=== PATIENT | female | born 1970 | race Caucasian/White ===

== ENCOUNTER 2017-05-22 06:22 | Emergency (ER) | payer BC ==
--- NOTE | 2017-05-22 06:41 | ERPHSYRPT ---
- History of Present Illness Time Seen by Provider: 05/22/17 06:27 Source: patient Exam Limitations: no limitations Physician History: FOR THE PAST 4 DAYS PT HAS HAD SHARP PAIN OVER THE LEFT LOWER RIBS WORSE WITH MOVEMENT, DEEP BREATHING AND POSITION CHANGE. PT DENIES ABDOMINAL PAIN, NAUSEA, VOMITING, DIARRHEA, FEVER. Allergies/Adverse Reactions: morphine Allergy (Verified 03/01/14 20:20) Tightness of Throat Hx Tetanus, Diphtheria Vaccination/Date Given: Yes (2009) Hx Influenza Vaccination/Date Given: No Hx Pneumococcal Vaccination/Date Given: No - Review of Systems Cardiac: Other (LEFT LOWER RIB PAIN) All Other Systems: Reviewed and Negative - Past Medical History Pertinent Past Medical History: Yes Neurological History: No Pertinent History Cardiac History: No Pertinent History Respiratory History: No Pertinent History Endocrine Medical History: Hypoglycemia Musculoskeletal History: Fractures Psycho-Social History: Depression - Past Surgical History Past Surgical History: Yes Gastrointestinal: Appendectomy, Other Female Surgical History: Hysterectomy, Lumpectomy, Tubal Ligation Other Surgical History: polyps removed from colon, - Social History Smoking Status: Never smoker Exposure to second hand smoke: Yes Drug Use: none Patient Lives Alone: No - Female History Hx Now: No - Nursing Vital Signs Nursing Vital Signs: Initial Vital Signs Temperature 96.8 F 05/22/17 06:22 Pulse Rate 78 05/22/17 06:22 Respiratory Rate 18 05/22/17 06:22 Blood Pressure 133/82 05/22/17 06:22 O2 Sat by Pulse Oximetry 99 05/22/17 06:22 Pain Scale Pain Intensity [Left Upper 7 Chest] Pain Intensity 6 - Physical Exam General Appearance: alert Eye Exam: PERRL/EOMI Ears, Nose, Throat Exam: pharynx normal, moist mucous membranes Neck Exam: normal inspection Respiratory Exam: chest tenderness (MILD LEFT LOWER ANTERIOLATERAL RIB PAIN WITHOUT CREPITUS.), lungs clear Cardiovascular Exam: normal heart sounds Gastrointestinal/Abdomen Exam: soft, normal bowel sounds Back Exam: normal inspection, normal range of motion, No vertebral tenderness Extremity Exam: No pedal edema Neurologic Exam: alert, cooperative Skin Exam: warm, dry - Course Nursing assessment & vital signs reviewed: Yes - Radiology Exams Chest X-ray Interpretation: Interpreted by me, No Pneumonia Left Ribs X-ray Interpretation: Interpreted by me, No Fracture Ordered Tests: Active Orders 24 hr Category Date Time Status CHEST 1 VIEW (PORTABLE) Stat Exams 05/22/17 06:45 Ordered RIBS BILATERAL INCLUDE PA CXR Stat Exams 05/22/17 Stop Req RIBS UNILATERAL Stat Exams 05/22/17 Ordered - Departure Time of Disposition: 07:18 Departure Disposition: Home Clinical Impression: LEFT RIB PAIN Condition: Stable Critical Care Time: No Instructions: Bruised Rib (DC) Additional Instructions: FOLLOW UP WITH PRIVATE DOCTOR TOMORROW. Prescriptions: Naproxen [Naprosyn] 500 mg PO Q12H PRN PRN #20 tablet PRN Reason: Pain Cyclobenzaprine HCl [Flexeril] 10 mg PO TID #20 tablet
[2017-05-22] MEDS ORDERED: TORAdol 30 mg Injection IM ONE (07:22)
[2017-05-22] MEDS ORDERED: TORAdol 30 mg Injection ONE (07:34)
[2017-05-22 07:50] VITALS: BP 126/80; PULSE 76; O2SAT 98
--- NOTE | 2017-05-22 09:21 | XRAY ---
Indication: Left lower rib pain. No known injury. Comparison: None 2 views of the left ribs demonstrates mild multilevel spinal endplate spurring. No other bony, articular, or soft tissue abnormalities.
--- NOTE | 2017-05-22 09:21 | XRAY ---
Indication: Left lower rib pain. No known injury. Comparison: None Single portable chest demonstrate normal heart and lungs with a few incidental calcified granulomas. Bony thorax intact with partially visualized old right humeral fracture and fixation hardware.
== END 2017-05-22 07:50 | disposition home or self-care (01) ==
LOC: ED 06:22
DX: R07.81 Pleurodynia (principal)
CPT/HCPCS: 71045; 71100; 96372; 99283; 99284; J1885

== ENCOUNTER 2018-10-06 12:16 | Emergency (ER) | payer BC, SELFPAY ==
[2018-10-06 12:42] VITALS: BP 136/75
--- NOTE | 2018-10-06 13:20 | ERPHSYRPT ---
- History of Present Illness Time Seen by Provider: 10/06/18 12:45 Source: patient Exam Limitations: no limitations Patient Subjective Stated Complaint: pt reports right leg pain and swelling, pt reports she noticed a knot to the right lateral upper thigh today and was concerned for a blood clot. pt reports she has a sharp shooting pain that radiates down the leg. pt states she spoke with her PCP and he advised her to present to the ED. Triage Nursing Assessment: pt is aox3, pupils perrl, afebrile, resps easy and non labored, radial pulses strong and equal, cap refill < 3 seconds, skin pink warm dry. no redness or swelling noted to the right leg, ROM and sensation is intact. small hardened area noted with palpation to the right lateral thight. skin is intact. pedal pulses strong and equal bilat. pt ambulated to t area wit no difficulties. Physician History: 48 y/o morbidly obese white female presents with 2 month h/o shooting pains like lightning down right leg. pt also complains of temperature differences in medial thigh from lateral thigh as well as a new lump lateral right thigh. no trauma. denies inactivity. no bleeding or clotting issues Method of Injury: other (no injury) Occurred: other (2 months ago) Quality: intermittent Severity of Pain-Max: none Severity of Pain-Current: none Lower Extremities Pain: thigh: right Modifying Factors: Improves With: nothing Allergies/Adverse Reactions: morphine Allergy (Verified 03/01/14 20:20) Tightness of Throat Hx Tetanus, Diphtheria Vaccination/Date Given: No Hx Influenza Vaccination/Date Given: No Hx Pneumococcal Vaccination/Date Given: No Immunizations Up to Date: Yes - Review of Systems Constitutional: No Symptoms Eyes: No Symptoms Ears, Nose, & Throat: No Symptoms Respiratory: No Symptoms Cardiac: No Symptoms Abdominal/Gastrointestinal: No Symptoms Genitourinary Symptoms: No Symptoms Musculoskeletal: Other (intermittent shooting pains down right leg), No Injury Skin: Other (lateral right thigh lump) Neurological: No Symptoms Psychological: No Symptoms Endocrine: No Symptoms Hematologic/Lymphatic: No Symptoms Immunological/Allergic: No Symptoms All Other Systems: Reviewed and Negative - Past Medical History Pertinent Past Medical History: Yes Neurological History: No Pertinent History ENT History: No Pertinent History Cardiac History: No Pertinent History Respiratory History: No Pertinent History Endocrine Medical History: Hypoglycemia Musculoskeletal History: Fractures GI Medical History: No Pertinent History History: No Pertinent History Psycho-Social History: Depression - Past Surgical History Past Surgical History: Yes Neuro Surgical History: No Pertinent History Cardiac: No Pertinent History Respiratory: No Pertinent History Gastrointestinal: Appendectomy, Other Musculoskeletal: Other Female Surgical History: Hysterectomy, Lumpectomy, Tubal Ligation Other Surgical History: polyps removed from colon, - Social History Smoking Status: Never smoker Exposure to second hand smoke: Yes Drug Use: none Patient Lives Alone: No - Female History Hx Last Menstrual Period: hyst Hx Now: No - Nursing Vital Signs Nursing Vital Signs: Initial Vital Signs Temperature 98 F 10/06/18 12:29 Blood Pressure 136/75 10/06/18 12:29 Pain Scale Pain Intensity 4 - Physical Exam General Appearance: no apparent distress, alert, anxiety Eyes, Ears, Nose, Throat Exam: normal ENT inspection, moist mucous membranes Neck Exam: normal inspection, non-tender, supple, full range of motion Cardiovascular/Respiratory Exam: chest non-tender Gastrointestinal/Abdominal Exam: non-tender Back Exam: normal inspection, normal range of motion, No CVA tenderness, No vertebral tenderness Hips Exam: bilateral: non-tender, normal inspection, normal range of motion, no evidence of injury Legs Exam: right leg: nodules (right lateral subq mass), bilateral leg: non- tender, normal inspection, normal range of motion, no evidence of injury Knees Exam: bilateral knee: non-tender, normal inspection, normal range of motion, no evidence of injury Ankle Exam: bilateral ankle: non-tender, normal inspection, normal range of motion, no evidence of injury Foot Exam: bilateral foot: non-tender, normal inspection, normal range of motion , no evidence of injury Neuro/Tendon Exam: normal sensation, normal motor functions, normal tendon functions Mental Status Exam: alert, oriented x 3, cooperative Skin Exam: normal color, warm, dry SpO2 Interpretation: normal O2 Delivery: Room Air - Course Nursing assessment & vital signs reviewed: Yes Ordered Tests: Active Orders 24 hr Category Date Time Status D-DIMER QUANTITATION Stat Lab 10/06/18 13:09 Completed Lab/Rad Data: Laboratory Results 10/06/18 Range/Units 13:09 D-Dimer 347 (215-500) ng/mL - Progress Progress: unchanged Counseled pt/family regarding: lab results, diagnosis, need for follow-up - Departure Departure Disposition: Home Clinical Impression: Leg pain Condition: Stable Critical Care Time: No Referrals: ANA GONZALEZ MD [Primary Care Provider] - Additional Instructions: follow up with primary doctor for further management
== END 2018-10-06 14:23 | disposition home or self-care (01) ==
LOC: ED 12:16
DX: M79.604 Pain in right leg (principal); E66.01 Morbid (severe) obesity due to excess calories
CPT/HCPCS: 36415; 85379; 99283

== ENCOUNTER 2019-05-14 07:22 | Day surgery (SDC) | payer BC ==
[2019-05-14] MEDS ORDERED: Lactated Ringers 1,000 ML IV SCH (07:30)
[2019-05-14] MEDS ORDERED: DIPRIVAN 200 MG/20 ML IV ONE ×3 (09:35→10:05)
[2019-05-14] MEDS ORDERED: Versed 2 MG/2 ML Injection ONE (09:35)
[2019-05-14 11:57] VITALS: BP 143/79; PULSE 86; O2SAT 98
--- NOTE | 2019-05-18 10:24 | OP ---
PROCEDURE DATE/TIME: 05/14/2019 0945 PREOPERATIVE DIAGNOSIS: Epigastric pain, bloating, reflux, nausea, lower abdominal pain and change in bowel function. POSTOPERATIVE DIAGNOSES: 1) A 1 to 2 cm small hiatal hernia. 2) Reflux esophagitis. 3) Small lower gastric body mobile submucosal mass. 4) Diverticulosis. PROCEDURES: 1) EGD with cold biopsies. 2) Colonoscopy to cecum. PROCEDURE PERFORMED BY: Bekah Fonseca M.D. ANESTHESIA: MAC. ESTIMATED BLOOD LOSS: Minimal. COMPLICATIONS: None. SPECIMENS: 1) Biopsy lower gastric body mass. 2) Antral biopsy. 3) Distal esophagus biopsies; rule out Vizcarra's disease. HISTORY: This is a 48 year-old female who presents for EGD and colonoscopy. Risks, benefits, alternatives to the procedure were discussed with the patient preoperatively. H&P and consent reviewed with her and confirmed. DESCRIPTION OF PROCEDURE: She was then placed in lateral decubitus position. A complete time out performed. The scope gently introduced into the mouth, oropharynx down into the esophagus, stomach and duodenum. The duodenum is normal. In the stomach she has a small lower gastric body lesion this is submucosal about 1 cm. It is mobile most consistent with a lipoma. I did attempt to biopsy this and this was sent to pathology. We also sent antral biopsy to rule out Helicobacter pylori due to her symptoms. She does have a small hiatal hernia on retroflex view, this is about 1 to 2 cm. No other significant findings in the stomach, very minimal gastritis. All sites of biopsy were hemostatic. We then withdrew the scope into the distal esophagus. The distal esophagus again there was a 1 to 2 cm small hiatal hernia. She did have some mild reflux esophagitis right at her gastroesophageal junction. I did a couple of biopsies here to rule out any underlying Vizcarra's disease. She had two columns that were less than 1 cm of mucosal change and these were both biopsied. All sites hemostatic. The scope is then further withdrawn. The remainder of the esophagus was normal. The patient tolerated the procedure well. She was then repositioned for colonoscopy. First, a rectal exam was done. The patient does have some hemorrhoidal disease. No bleeding or acute issues here. The scope was then inserted and gently advanced to the level of the cecum. Prep was satisfactory for review for polyps. There was liquid stool that had to be irrigated and suctioned free. A very small or very flat lesion could be missed because of a not perfect prep. We identified the ileocecal valve and appendiceal orifice and these are normal. The scope was then carefully withdrawn taking a circumferential view. The patient does have diverticulosis in her descending and sigmoid colon. Other than that there were no lesions or concerns. The patient tolerated the procedure very well. No immediate complications. She is going to follow up with me as an outpatient for final review of pathology. At this time our plan will be for EGD in one year due to the finding of a submucosal mass and reflux disease and a colonoscopy in approximately five years.
== END 2019-05-14 11:35 | disposition home or self-care (01) ==
LOC: SDC 07:22
PROVIDERS: ATTEND Surgery
DX: K44.9 Diaphragmatic hernia without obstruction or gangrene (principal); K21.0 Gastro-esophageal reflux disease with esophagitis; K57.30 Diverticulosis of large intestine without perforation or abscess without bleeding; K31.9 Disease of stomach and duodenum, unspecified; R14.0 Abdominal distension (gaseous); R19.4 Change in bowel habit; R10.30 Lower abdominal pain, unspecified
CPT/HCPCS: 88305; J2250; J2704

== ENCOUNTER 2019-05-20 22:35 | Emergency (ER) | payer BC ==
[2019-05-20 22:54] VITALS: O2SAT 99
[2019-05-20] MEDS ORDERED: Sodium Chloride 0.9% 1000 ML 1,000 ML IV STA (23:16)
[2019-05-20 23:58] LABS: Absolute Neutrophil Ct (ANC) 8.75 (1.4-6.9); BASOPHIL % 0.6 % (0.0-0.4); Basophil (Absolute #) 0.08 (0-0.4); Eosinophil % 1.3 % (0.00-5.0); Eosinophil (Absolute #) 0.18 (0-0.5); Hematocrit 39.6 % (35-47); Hemoglobin 12.3 gm/dl (12.0-16.0); Lymphocyte (Absolute #) 3.53 (1.0-4.6); Lymphocytes % 26.1 % (24.0-44.0); Mean Cell Volume 79.4 fl (78-100); Mean Corpuscular Hemoglobin 24.6 pg (26-32); Mean Corpuscular Hgb Concent. 31.1 g/dl (32-36); Mean Platelet Volume 10.1 fl (7.5-11.0); Monocyte (Absolute #) 0.99 (0.0-1.3); Monocytes % 7.3 % (0.0-12.0); Neutrophil % 64.7 % (36.0-66.0); Platelet Count 351 K/mm3 (150-450); Red Blood Count 4.99 M/mm3 (4.1-5.4); Red Cell Distribution Width 17.2 % (11.5-14.0); White Blood Count 13.5 K/mm3 (4.0-10.5)
--- NOTE | 2019-05-21 00:02 | ERPHSYRPT ---
- History of Present Illness Time Seen by Provider: 05/20/19 23:00 Historian: patient Exam Limitations: no limitations Patient Subjective Stated Complaint: pt c/o abd pain, nausea, vomiting, and pain radiates to back. Triage Nursing Assessment: pt c/o abd pain to right side which radiates to middle of abd and also radiates to back. Pt nauseated, vomited x2 at work, denies any diarrhea. Abd lg, obese with active bs x4 quad, tender on palpation. Pt c/o being diaphoretic with the pain. Pt c/o lower leg edema. Physician History: Patient is a 48-year-old female with a history of biliary colic presents to our ED with complaints of right upper quadrant pain. Pain started today while at work. Pain described as an ache that tends to radiate to her back from her right upper quadrant. Pain is associated with nausea. Patient vomited twice. No diarrhea. No trauma. No fever. Patient states that her body feels bloated. She advises staff that she is currently scheduled to have a cholecystectomy. No associated chest pain. No shortness of breath. Patient voices no other complaints at this time. Patient declined pain medication. Timing/Duration: today Activities at Onset: none Quality: aching Abdominal Pain Onset Location: RUQ Pain Radiation: back Severity of Pain-Max: moderate Severity of Pain-Current: moderate Modifying Factors: Improves With: nothing Associated Symptoms: No chest pain, No shortness of breath, No weakness Previous symptoms: same symptoms as today Allergies/Adverse Reactions: morphine Allergy (Severe, Verified 05/20/19 23:01) Tightness of Throat Home Medications: Acetaminophen 325 mg [Tylenol 325 mg] 3 tab PO UD PRN 05/14/19 [History] Hx Tetanus, Diphtheria Vaccination/Date Given: Yes Hx Influenza Vaccination/Date Given: No Hx Pneumococcal Vaccination/Date Given: No Immunizations Up to Date: Yes - Review of Systems Constitutional: No Fever, No Chills Eyes: No Symptoms Ears, Nose, & Throat: No Symptoms Respiratory: No Symptoms, No Cough, No Dyspnea Cardiac: No Symptoms, No Chest Pain, No Edema, No Syncope Abdominal/Gastrointestinal: No Symptoms, No Abdominal Pain, No Nausea, No Vomiting, No Diarrhea Genitourinary Symptoms: No Symptoms, No Dysuria Musculoskeletal: No Symptoms, No Back Pain, No Neck Pain Skin: No Symptoms, No Rash Neurological: No Symptoms, No Dizziness, No Focal Weakness, No Sensory Changes Psychological: No Symptoms Endocrine: No Symptoms Hematologic/Lymphatic: No Symptoms Immunological/Allergic: No Symptoms All Other Systems: Reviewed and Negative - Past Medical History Pertinent Past Medical History: Yes Neurological History: No Pertinent History ENT History: No Pertinent History Cardiac History: No Pertinent History Respiratory History: No Pertinent History Endocrine Medical History: Hypoglycemia Musculoskeletal History: Fractures GI Medical History: No Pertinent History History: No Pertinent History Psycho-Social History: No Pertinent History Female Reproductive Disorders: Ovarian Cancer, Uterine Cancer Other Medical History: patient states she had uterine and ovarian cancer but they got it all with complete hysterectomy, right shoulder fx and back problems - Past Surgical History Past Surgical History: Yes Neuro Surgical History: No Pertinent History Cardiac: No Pertinent History Respiratory: No Pertinent History Gastrointestinal: Appendectomy, Other Genitourinary: No Pertinent History Musculoskeletal: Orthopedic Surgery Female Surgical History: Hysterectomy, Section, Tubal Ligation, Lumpectomy Other Surgical History: polyps removed from colon, r shoulder surgeries - Social History Smoking Status: Never smoker Exposure to second hand smoke: No Drug Use: none Patient Lives Alone: No - Female History Hx Now: No - Nursing Vital Signs Nursing Vital Signs: Initial Vital Signs Temperature 97.7 F 05/20/19 22:42 Pulse Rate 93 H 05/20/19 22:42 Respiratory Rate 20 05/20/19 22:42 Blood Pressure 137/77 05/20/19 22:42 O2 Sat by Pulse Oximetry 99 05/20/19 22:42 Pain Scale Pain Intensity 10 - Physical Exam General Appearance: no apparent distress, alert Eye Exam: PERRL/EOMI, eyes nml inspection Ears, Nose, Throat Exam: normal ENT inspection, pharynx normal, moist mucous membranes Neck Exam: normal inspection, non-tender, supple, full range of motion Respiratory Exam: normal breath sounds, lungs clear, No respiratory distress Cardiovascular Exam: regular rate/rhythm, normal heart sounds Gastrointestinal/Abdomen Exam: soft, tenderness, No mass, No guarding, No pulsatile mass (Positive Wilkerson sign right upper quadrant.) Back Exam: normal inspection, normal range of motion, No CVA tenderness, No vertebral tenderness Extremity Exam: normal inspection, normal range of motion, pelvis stable Neurologic Exam: alert, oriented x 3, cooperative, normal mood/affect, nml cerebellar function, sensation nml, No motor deficits Skin Exam: normal color, warm, dry SpO2 Interpretation: normal SpO2: 99 O2 Delivery: Room Air - Course Nursing assessment & vital signs reviewed: Yes EKG Interpreted by Me: RATE, NORMAL AXIS, NORMAL INTERVALS - CT Exams Abdomen/Pelvis CT Interpretation: Tele-radiologist Report (CT abdomen pelvis negative for acute pathology. Hiatal hernia, hepatic steatosis, kidney lesion diverticulosis and spine arthritis observed. The gallbladder appears normal within the limitations of CAT scan.) Ordered Tests: Active Orders 24 hr Category Date Time Status EKG-ER Only STAT Care 05/20/19 23:16 Active IV Insertion STAT Care 05/20/19 23:16 Active ABDOMEN AND PELVIS W CONTRAST [CT] Stat Exams 05/21/19 00:12 Taken GALLBLADDER [US] Stat Exams 05/20/19 23:16 Ordered CBC W DIFF Stat Lab 05/20/19 23:55 Completed CMP Stat Lab 05/20/19 23:55 Completed LIPASE Stat Lab 05/20/19 23:55 Completed TROPONIN Q3H Lab 05/20/19 23:55 Completed TROPONIN Q3H Lab 05/21/19 02:30 Ordered TROPONIN Q3H Lab 05/21/19 05:30 Ordered TROPONIN Q3H Lab 05/21/19 08:30 Ordered TROPONIN Q3H Lab 05/21/19 11:30 Ordered UA W/RFX UR CULTURE Stat Lab 05/20/19 23:57 Completed Medication Summary Discontinued Medications Generic Name Dose Route Start Last Admin Trade Name Freq PRN Reason Stop Dose Admin Sodium Chloride 1,000 mls @ 999 mls/hr 05/20/19 23:16 05/21/19 01:41 Sodium Chloride 0.9% 1000 Ml IV 05/21/19 00:16 Infused .Q1H1M STA Infusion Sodium Chloride Confirm 05/21/19 00:12 Sodium Chloride 0.9% 1000 Ml Administered 05/21/19 00:13 Dose 1,000 mls @ ud .ROUTE .K-MED ONE Lab/Rad Data: Laboratory Result Diagrams 05/20/19 23:55 05/20/19 23:55 Laboratory Results 05/20/19 05/20/19 05/20/19 Range/Units 23:57 23:55 23:55 WBC (4.0-10.5) K/mm3 RBC (4.1-5.4) M/mm3 Hgb (12.0-16.0) gm/dl Hct (35-47) % MCV (78-100) fl MCH (26-32) pg MCHC (32-36) g/dl RDW (11.5-14.0) % Plt Count (150-450) K/mm3 MPV (7.5-11.0) fl Gran % (36.0-66.0) % Eos # (Auto) (0-0.5) Absolute Lymphs (auto) (1.0-4.6) Absolute Monos (auto) (0.0-1.3) Lymphocytes % (24.0-44.0) % Monocytes % (0.0-12.0) % Eosinophils % (0.00-5.0) % Basophils % (0.0-0.4) % Absolute Granulocytes (1.4-6.9) Basophils # (0-0.4) Sodium 140 (137-145) mmol/L Potassium 3.6 (3.5-5.1) mmol/L Chloride 104 (98-107) mmol/L Carbon Dioxide 29 (22-30) mmol/L Anion Gap 10.9 (5-15) MEQ/L BUN 15 (7-17) mg/dL Creatinine 0.58 (0.52-1.04) mg/dL Estimated GFR > 60.0 ML/MIN Glucose 98 (74-106) mg/dL Calcium 8.8 (8.4-10.2) mg/dL Total Bilirubin 0.60 (0.2-1.3) mg/dL AST 19 (14-36) U/L ALT 17 (0-35) U/L Alkaline Phosphatase 72 (38-126) U/L Troponin I < 0.012 (0.000-0.034) ng/mL Serum Total Protein 8.0 (6.3-8.2) g/dL Albumin 4.2 (3.5-5.0) g/dL Lipase 52 (23-300) U/L Urine Color YELLOW (YELLOW) Urine Appearance SLIGHTLY CLOUDY (CLEAR) Urine pH 6.0 (5-6) Ur Specific [place] 1.013 (1.005-1.025) Urine Protein NEGATIVE (Negative) Urine Ketones NEGATIVE (NEGATIVE) Urine Blood NEGATIVE (0-5) Sam/ul Urine Nitrite NEGATIVE (NEGATIVE) Urine Bilirubin NEGATIVE (NEGATIVE) Urine Urobilinogen NEGATIVE (0-1) mg/dL Ur Leukocyte Esterase NEGATIVE (NEGATIVE) Urine WBC (Auto) 3-5 (0-5) /HPF Urine RBC (Auto) 0-2 (0-2) /HPF U Epithel Cells (Auto) NONE (FEW) /HPF Urine Bacteria (Auto) NONE (NEGATIVE) /HPF Calcium Oxalate Crystal 6-10 (NEGATIVE) /HPF Unidentified Crystals 2-5 (NEGATIVE) /HPF Other Casts (Auto) NEGATIVE (NEGATIVE) /LPF Urine Mucus (Auto) SLIGHT (NEGATIVE) /HPF Urine Culture Reflexed NO (NO) Urine Glucose NEGATIVE (NEGATIVE) mg/dL 05/20/19 Range/Units 23:55 WBC 13.5 H (4.0-10.5) K/mm3 RBC 4.99 (4.1-5.4) M/mm3 Hgb 12.3 (12.0-16.0) gm/dl Hct 39.6 (35-47) % MCV 79.4 (78-100) fl MCH 24.6 L (26-32) pg MCHC 31.1 L (32-36) g/dl RDW 17.2 H (11.5-14.0) % Plt Count 351 (150-450) K/mm3 MPV 10.1 (7.5-11.0) fl Gran % 64.7 (36.0-66.0) % Eos # (Auto) 0.18 (0-0.5) Absolute Lymphs (auto) 3.53 (1.0-4.6) Absolute Monos (auto) 0.99 (0.0-1.3) Lymphocytes % 26.1 (24.0-44.0) % Monocytes % 7.3 (0.0-12.0) % Eosinophils % 1.3 (0.00-5.0) % Basophils % 0.6 (0.0-0.4) % Absolute Granulocytes 8.75 H (1.4-6.9) Basophils # 0.08 (0-0.4) Sodium (137-145) mmol/L Potassium (3.5-5.1) mmol/L Chloride (98-107) mmol/L Carbon Dioxide (22-30) mmol/L Anion Gap (5-15) MEQ/L BUN (7-17) mg/dL Creatinine (0.52-1.04) mg/dL Estimated GFR ML/MIN Glucose (74-106) mg/dL Calcium (8.4-10.2) mg/dL Total Bilirubin (0.2-1.3) mg/dL AST (14-36) U/L ALT (0-35) U/L Alkaline Phosphatase (38-126) U/L Troponin I (0.000-0.034) ng/mL Serum Total Protein (6.3-8.2) g/dL Albumin (3.5-5.0) g/dL Lipase (23-300) U/L Urine Color (YELLOW) Urine Appearance (CLEAR) Urine pH (5-6) Ur Specific [place] (1.005-1.025) Urine Protein (Negative) Urine Ketones (NEGATIVE) Urine Blood (0-5) Sam/ul Urine Nitrite (NEGATIVE) Urine Bilirubin (NEGATIVE) Urine Urobilinogen (0-1) mg/dL Ur Leukocyte Esterase (NEGATIVE) Urine WBC (Auto) (0-5) /HPF Urine RBC (Auto) (0-2) /HPF U Epithel Cells (Auto) (FEW) /HPF Urine Bacteria (Auto) (NEGATIVE) /HPF Calcium Oxalate Crystal (NEGATIVE) /HPF Unidentified Crystals (NEGATIVE) /HPF Other Casts (Auto) (NEGATIVE) /LPF Urine Mucus (Auto) (NEGATIVE) /HPF Urine Culture Reflexed (NO) Urine Glucose (NEGATIVE) mg/dL - Progress Progress: improved Progress Note: 05/21/19 02:11 We will arrange for patient to have an outpatient ultrasound of the gallbladder to be performed at this morning. Results will be sent to Dr. Mancia patient' s family physician. Plan of care discussed with patient. She agrees and understands plan of care. We have arranged to have patient obtain a right upper quadrant ultrasound to be performed Saturday morning. Results to be sent to Dr. Mancia. 05/21/19 02:20 Counseled pt/family regarding: lab results, diagnosis, need for follow-up, rad results - Departure Departure Disposition: Home Clinical Impression: Biliary colic, Hepatic steatosis, Kidney lesion, Diverticulosis, Arthritis of spine Condition: Stable Critical Care Time: No Referrals: SHIVAM MANCIA MD [Primary Care Provider] - Additional Instructions: Discharge/Care Plan JULIEN MADERA was seen on 05/21/19 in the Emergency Room. The patient was counseled regarding Diagnosis,Lab results, Imaging studies, need for follow up and when to return to the Emergency Room. Prescriptions given: Discharge Note I have spoken with the patient and/or caregivers. I have explained the patient' s condition, diagnosis and treatment plan based on the information available to me at this time. I have answered the patient's and/or caregiver's questions and addressed any concerns. The patient and/or caregivers have as good understanding of the patient's diagnosis, condition and treatment plan as can be expected at this point. The vital signs have been stable. The patient's condition is stable and appropriate for discharge from the emergency department. The patient will pursue further outpatient evaluation with the primary care physician or other designated or consulting physician as outlined in the discharge instructions. The patient and/or caregivers are agreeable to this plan of care and follow-up instructions have been explained in detail. The patient and/or caregivers have received these instruction. The patient/and or caregivers are aware that any significant change in condition or worsening of symptoms should prompt an immediate return to this or the closest emergency department or call 911.
[2019-05-21 00:07] LABS: Appearance SLIGHTLY CLOUDY (CLEAR); Bilirubin NEGATIVE (NEGATIVE); Blood NEGATIVE Ery/ul (0-5); Glucose NEGATIVE (NEGATIVE); Ketones NEGATIVE (NEGATIVE); Leukocyte Esterase NEGATIVE (NEGATIVE); Mucus SLIGHT /HPF (NEGATIVE); Nitrite NEGATIVE (NEGATIVE); Protein,Urine Dip NEGATIVE (Negative); RBC 0-2 /HPF (0-2); Specific Gravity 1.013 (1.005-1.025); Urobilinogen NEGATIVE mg/dL (0-1)
[2019-05-21 00:12] LABS: ALBUMIN 4.2 g/dL (3.5-5.0); ALKALINE PHOSPHATASE 72 U/L (38-126); ANION GAP 10.9 MEQ/L (5-15); BLOOD UREA NITROGEN 15 mg/dL (7-17); CHLORIDE 104 mmol/L (98-107); Calcium 8.8 mg/dL (8.4-10.2); Carbon Dioxide 29 mmol/L (22-30); Creatinine 1 0.58 mg/dL (0.52-1.04); Glucose 98 mg/dL (74-106); LIPASE 52 U/L (23-300); Potassium 3.6 mmol/L (3.5-5.1); SGOT/AST 19 U/L (14-36); SGPT/ALT 17 U/L (0-35); SODIUM 140 mmol/L (137-145)
[2019-05-21] MEDS ORDERED: Sodium Chloride 0.9% 1000 ML 1,000 ML ONE (00:12)
[2019-05-21 02:02] VITALS: BP 99/56; PULSE 90
--- NOTE | 2019-05-21 09:18 | XRAY ---
Indication: Right upper quadrant pain and nausea. Elevated WBC. Multiple contiguous axial images obtained through the abdomen and pelvis using 80 cc Isovue 370 contrast. Comparison: April 29, 2019. Lung bases demonstrate minimal bilateral dependent atelectasis. No infiltrate or effusion. Heart is not enlarged. Stable small hiatal hernia. Noncontrasted stomach and bowel loops remain nonobstructed. Again scattered descending and sigmoid diverticulosis without diverticulitis. Previous reported appendectomy and hysterectomy. Continued 20 cm hepatomegaly and 12.3 cm borderline splenomegaly. No free fluid/air. Stable tiny bilateral renal cysts. Remaining liver, gallbladder, pancreas, spleen, adrenal glands, kidneys, ureters, and bladder appear unremarkable. Stable minimal aortic calcifications without AAA or pathologic retroperitoneal lymphadenopathy. Osseous structures remain intact again with L4-S1 degenerative changes. Impression: 1. Stable small hiatal hernia, colonic diverticulosis, hepatosplenomegaly, and bilateral renal cysts. 2. Remaining CT abdomen/pelvis with contrast exam is negative. Comment: Preliminary interpretation was made by [facility]. No critical discrepancy.
== END 2019-05-21 02:35 | disposition home or self-care (01) ==
LOC: ED 22:35
DX: K80.50 Calculus of bile duct without cholangitis or cholecystitis without obstruction (principal); K76.0 Fatty (change of) liver, not elsewhere classified; K57.90 Diverticulosis of intestine, part unspecified, without perforation or abscess without bleeding; M46.90 Unspecified inflammatory spondylopathy, site unspecified; R10.11 Right upper quadrant pain; Z85.43 Personal history of malignant neoplasm of ovary; Z85.42 Personal history of malignant neoplasm of other parts of uterus
CPT/HCPCS: 36000; 36415; 74177; 80053; 81001; 83690; 84484; 85025; 93005; 96360; 99284

== ENCOUNTER 2019-07-15 15:06 | Emergency (ER) | payer BC ==
[2019-07-15 15:26] VITALS: O2SAT 97
--- NOTE | 2019-07-15 15:34 | ERPHSYRPT ---
- History of Present Illness Source: patient Physician History: Patient is a 48-year-old female with a history of shoulder dislocation and surgery who presents to our ED with complaints of concerns for shoulder dislocation. Patient awoke this morning with pain to her right shoulder. Patient states that she feels her shoulder is unstable and can hear a popping sensation that is similar to her previous dislocations. Pain is well localized. Pain reproduced with movement of her right shoulder. Pain essentially resolved with rest. No associated trauma that she recalls. No chest pain or shortness of breath. No nausea or vomiting. No diaphoresis. Symptoms are mild to moderate in intensity. Patient voices no other complaints at this time. Occurred: this morning Method of Injury: unknown Quality: aching Severity of Pain-Max: moderate Severity of Pain-Current: mild Extremities Pain Location: shoulder: right (Patient feels her right shoulder is unstable painful to movement.) Modifying Factors: Improves With: movement, rest Associated Symptoms: none Allergies/Adverse Reactions: morphine Allergy (Severe, Verified 07/15/19 15:38) Tightness of Throat Home Medications: No Reportable Medications [No Reported Medications] 07/15/19 [History] Hx Tetanus, Diphtheria Vaccination/Date Given: Yes Hx Influenza Vaccination/Date Given: No Hx Pneumococcal Vaccination/Date Given: No Travel Risk - International Travel Have you traveled outside of the country in past 3 weeks: No Have you or anyone close to you been diagnosed with or: No Do your reside in a community with a known COVID-19 case?: Yes If Yes where:: [facility] - Review of Systems Constitutional: No Symptoms, No Fever, No Chills Eyes: No Symptoms Ears, Nose, & Throat: No Symptoms Respiratory: No Symptoms, No Cough, No Dyspnea Cardiac: No Symptoms, No Chest Pain, No Edema, No Syncope Abdominal/Gastrointestinal: No Symptoms, No Abdominal Pain, No Nausea, No Vomiting, No Diarrhea Genitourinary Symptoms: No Symptoms, No Dysuria Musculoskeletal: Joint Pain, No Back Pain, No Neck Pain, No Deformity Skin: No Symptoms, No Rash Neurological: No Symptoms, No Dizziness, No Focal Weakness, No Sensory Changes Psychological: No Symptoms Endocrine: No Symptoms Hematologic/Lymphatic: No Symptoms Immunological/Allergic: No Symptoms All Other Systems: Reviewed and Negative - Past Medical History Pertinent Past Medical History: Yes Neurological History: No Pertinent History ENT History: No Pertinent History Cardiac History: No Pertinent History Respiratory History: No Pertinent History Endocrine Medical History: Hypoglycemia Musculoskeletal History: Fractures GI Medical History: No Pertinent History History: No Pertinent History Psycho-Social History: No Pertinent History Female Reproductive Disorders: Ovarian Cancer, Uterine Cancer Other Medical History: patient states she had uterine and ovarian cancer but they got it all with complete hysterectomy, right shoulder fx and back problems - Past Surgical History Past Surgical History: Yes Neuro Surgical History: No Pertinent History Cardiac: No Pertinent History Respiratory: No Pertinent History Gastrointestinal: Appendectomy, Other Genitourinary: No Pertinent History Musculoskeletal: Orthopedic Surgery Female Surgical History: Hysterectomy, Section, Tubal Ligation, Lumpectomy Other Surgical History: polyps removed from colon, r shoulder surgeries - Social History Smoking Status: Never smoker Exposure to second hand smoke: No Drug Use: none Patient Lives Alone: No - Female History Hx Now: No - Nursing Vital Signs Nursing Vital Signs: Initial Vital Signs Temperature 98.3 F 07/15/19 15:25 Pulse Rate 96 H 07/15/19 15:25 Respiratory Rate 20 07/15/19 15:25 Blood Pressure 109/72 07/15/19 15:25 O2 Sat by Pulse Oximetry 97 07/15/19 15:25 Pain Scale Pain Intensity 2 - Physical Exam General Appearance: no apparent distress, alert Eyes, Ears, Nose, Throat Exam: moist mucous membranes Neck Exam: non-tender, supple Cardiovascular/Respiratory Exam: chest non-tender, normal breath sounds, regular rate/rhythm, no respiratory distress Abdominal Exam: non-tender, No guarding Back Exam: normal inspection, No vertebral tenderness Shoulder Exam: limited ROM (Tenderness at the right GH joint area. A well- healed scar is observed from previous area. Extremities neurovascular intact distally. Radial pulses palpable. Compartments are soft. Cap refill less than 2 seconds. No ecchymosis or swelling.), pain Wrist Exam: non-tender Hand Exam: normal inspection Neuro/Tendon Exam: normal sensation, normal motor functions Mental Status Exam: alert, oriented x 3, cooperative Skin Exam: normal color, warm, dry SpO2 Interpretation: normal SpO2: 97 O2 Delivery: Room Air - Course Nursing assessment & vital signs reviewed: Yes - Radiology Exams Shoulder X-ray Interpretation: Interpreted by me (No fracture or dislocation. The GH joint appears to be in good alignment.) Ordered Tests: Active Orders 24 hr Category Date Time Status SHOULDER Stat Exams 07/15/19 15:24 Taken Medication Summary Generic Name Dose Route Start Last Admin Trade Name Irma PRN Reason Stop Dose Admin Acetaminophen 975 mg 07/15/19 16:05 Tylenol 325 Mg PO 07/15/19 16:06 STAT ONE - Progress Progress: improved Progress Note: 07/15/19 16:09 Patient reassessed. Pain improved. Patient given 1 g of Tylenol for pain control. Patient also placed in right upper extremity sling for comfort and stability of her right shoulder. Patient has a history of recurrent shoulder dislocation and surgery. It is possible that she may have dislocated and auto reduced. No obvious fracture dislocation on the x-ray performed today. Patient will be sent back to her orthopedic doctor Dr. Dunbar. Plan of care discussed with patient. She agrees to follow-up with her orthopedic doctor within 48 hours for reevaluation. Work note provided. - Departure Departure Disposition: Home Clinical Impression: Shoulder pain Condition: Stable Critical Care Time: No Referrals: SHIVAM FIELD MD [Primary Care Provider] - REINALDO DUNBAR [ACTIVE STAFF] - Instructions: Shoulder Sprain (DC) Additional Instructions: Please follow up with Dr. Dunbar within 48 hours for reevaluation of your right shoulder. Discharge/Care Plan JULIEN MADERA was seen on 07/15/19 in the Emergency Room. The patient was counseled regarding Diagnosis,Lab results, Imaging studies, need for follow up and when to return to the Emergency Room. Prescriptions given: Discharge Note I have spoken with the patient and/or caregivers. I have explained the patient' s condition, diagnosis and treatment plan based on the information available to me at this time. I have answered the patient's and/or caregiver's questions and addressed any concerns. The patient and/or caregivers have as good understanding of the patient's diagnosis, condition and treatment plan as can be expected at this point. The vital signs have been stable. The patient's condition is stable and appropriate for discharge from the emergency department. The patient will pursue further outpatient evaluation with the primary care physician or other designated or consulting physician as outlined in the discharge instructions. The patient and/or caregivers are agreeable to this plan of care and follow-up instructions have been explained in detail. The patient and/or caregivers have received these instruction. The patient/and or caregivers are aware that any significant change in condition or worsening of symptoms should prompt an immediate return to this or the closest emergency department or call 911.
[2019-07-15] MEDS ORDERED: TYLENOL 325 MG PO ONE (16:05)
[2019-07-15] MEDS ORDERED: TYLENOL EXTRA STRENGTH 500 MG ONE (16:06)
[2019-07-15] MEDS ORDERED: TYLENOL 325 MG ONE (16:08)
[2019-07-15 16:12] VITALS: BP 104/69; PULSE 84
--- NOTE | 2019-07-15 16:19 | XRAY ---
Indication: Dislocation. Comparison: April 02, 2017. 3 view right shoulder demonstrates healed humeral head/neck fracture. No other bony, articular, or soft tissue abnormalities.
== END 2019-07-15 16:20 | disposition home or self-care (01) ==
LOC: ED 15:06
DX: M25.511 Pain in right shoulder (principal); Z85.43 Personal history of malignant neoplasm of ovary; Z85.42 Personal history of malignant neoplasm of other parts of uterus
CPT/HCPCS: 73030; 99283; A9270-GY

== ENCOUNTER 2019-08-06 15:27 | Observation (INO) | payer BC ==
[2019-08-06] MEDS ORDERED: Ecotrin 325 MG PO PRN (16:33)
[2019-08-06 16:57] LABS: Absolute Neutrophil Ct (ANC) 7.31 (1.4-6.9); BASOPHIL % 0.6 % (0.0-0.4); Basophil (Absolute #) 0.06 (0-0.4); Eosinophil % 1.4 % (0.00-5.0); Eosinophil (Absolute #) 0.15 (0-0.5); Hematocrit 38.8 % (35-47); Hemoglobin 12.3 gm/dl (12.0-16.0); Lymphocyte (Absolute #) 2.37 (1.0-4.6); Mean Corpuscular Hemoglobin 25.4 pg (26-32); Mean Corpuscular Hgb Concent. 31.7 g/dl (32-36); Mean Platelet Volume 11.1 fl (7.5-11.0); Monocyte (Absolute #) 0.88 (0.0-1.3); Monocytes % 8.2 % (0.0-12.0); Neutrophil % 67.8 % (36.0-66.0); Platelet Count 322 K/mm3 (150-450); Red Blood Count 4.85 M/mm3 (4.1-5.4); Red Cell Distribution Width 16.9 % (11.5-14.0); White Blood Count 10.8 K/mm3 (4.0-10.5)
--- NOTE | 2019-08-06 17:31 | XRAY ---
Indication: Confusion. Visual disturbances. Possible TIA. Sagittal, coronal, and axial MRI brain was performed without contrast using T1, T2, FLAIR, diffusion, and ADC sequences. Comparison: None Ventriculosulcal pattern appears symmetric. Minimal periventricular degenerative micro-ischemia signal bilaterally. No acute intracranial hemorrhage, abnormal extra-axial fluid question, or mass effect. Diffusion images are negative for restricted signal. Fourth ventricle is midline without hydrocephalus. 7/8 cranial nerve complex bilaterally symmetric. Normal flow-void signal within the major intracerebral circulation. Normal appearing craniocervical junction and sella turcica. Paranasal sinuses and mastoid air cells are clear. Impression: Minimal periventricular degenerative micro-ischemia within normal limits for patient's age. Remaining MRI brain without contrast exam is negative.
[2019-08-06 17:43] LABS: ALKALINE PHOSPHATASE 61 U/L (38-126); ANION GAP 12.9 MEQ/L (5-15); BLOOD UREA NITROGEN 13 mg/dL (7-17); CHLORIDE 107 mmol/L (98-107); Calcium 8.9 mg/dL (8.4-10.2); Carbon Dioxide 26 mmol/L (22-30); Creatinine 1 0.52 mg/dL (0.52-1.04); Potassium 3.9 mmol/L (3.5-5.1); SGOT/AST 17 U/L (14-36); SGPT/ALT 16 U/L (0-35); SODIUM 142 mmol/L (137-145); Total Protein 7.5 g/dL (6.3-8.2)
[2019-08-06 17:53] LABS: Appearance CLEAR (CLEAR); Bilirubin NEGATIVE (NEGATIVE); Blood NEGATIVE Ery/ul (0-5); Glucose NEGATIVE (NEGATIVE); Ketones NEGATIVE (NEGATIVE); Leukocyte Esterase NEGATIVE (NEGATIVE); Nitrite NEGATIVE (NEGATIVE); Protein,Urine Dip NEGATIVE (Negative); RBC 0-2 /HPF (0-2); Specific Gravity 1.014 (1.005-1.025); Urobilinogen NEGATIVE mg/dL (0-1)
[2019-08-06] MEDS: Sodium Chloride 0.9% 1000 ML 1,000 ML IV SCH (18:12)
[2019-08-06] MEDS ORDERED: TYLENOL EXTRA STRENGTH 500 MG PO PRN (22:19)
[2019-08-07] MEDS ORDERED: TYLENOL EXTRA STRENGTH 500 MG PO PRN (06:38)
[2019-08-07] MEDS: Sodium Chloride 0.9% 1000 ML 1,000 ML IV SCH (08:40)
--- NOTE | 2019-08-07 08:58 | PCM.HP.ADD ---
Addendum to History & Physical - History & Physical Addendum Addendum to History & Physical: This certifies that the History & Physical in the electronic chart reflects the current health status of the patient. If there are changes in the H&P these changes/exceptions are listed as follows.
--- NOTE | 2019-08-07 09:04 | PCM.DS ---
Discharge Summary Date of Admission: 08/06/19 15:59 Admitting Physician: AMANDO AVALOS Primary Care Provider: SHIVAM FIELD MD Allergies Allergies morphine Allergy (Severe, Verified 08/06/19 17:06) Tightness of Throat Hospital Summary - Hospital Course Hospital Course: Pt is a 48 yo female pt of Dr. Hall with obesity who was admitted to [facility] for TIA (admitted directly by Dr. Hall; for full details see his office visit). She had complained of feeling "foggy" with some electric shock type sensations in bilat legs and squeezing type head discomfort. She notes a hx of 4d of VALDEZ recently (does not have known chronic migraines) with some scotoma. Still having head discomfort this morning. Pt had an MRI brain which was normal for age. She had echocardiogram and carotid doppler which were nl. Unsure if c-spine MRI was done. EEG ordered. Will order ESR and teleneurology consult. Pt does appear anxious about her sx. If results continue nonacute and teleneurology agrees, will likely send pt home later today to f/u with outpatient neurology. May very well have new onset migraine. - Vitals & Intake/Output Vital Signs: Vital Signs Temperature 98 F 08/07/19 07:05 Pulse Rate 77 08/07/19 07:05 Respiratory Rate 18 08/07/19 07:05 Blood Pressure 104/59 08/07/19 07:05 O2 Sat by Pulse Oximetry 96 08/07/19 07:05 Intake & Output: Intake & Output 08/04/19 08/05/19 08/06/19 08/07/19 11:59 11:59 11:59 11:59 Intake Total 1947 Output Total 1300 Balance 647 Weight 125.2 kg - Lab Result Diagrams: 08/06/19 16:35 08/06/19 16:35 Lab Results-Last 24 Hrs: Accuchecks Accucheck Value: 109 Accucheck Value: 90 Accucheck Value: 82 Lab Results-Last 24 Hours 08/06/19 08/06/19 08/06/19 Range/Units 16:35 16:35 16:35 WBC 10.8 H (4.0-10.5) K/mm3 RBC 4.85 (4.1-5.4) M/mm3 Hgb 12.3 (12.0-16.0) gm/dl Hct 38.8 (35-47) % MCV 80.0 (78-100) fl MCH 25.4 L (26-32) pg MCHC 31.7 L (32-36) g/dl RDW 16.9 H (11.5-14.0) % Plt Count 322 (150-450) K/mm3 MPV 11.1 H (7.5-11.0) fl Gran % 67.8 H (36.0-66.0) % Eos # (Auto) 0.15 (0-0.5) Absolute Lymphs (auto) 2.37 (1.0-4.6) Absolute Monos (auto) 0.88 (0.0-1.3) Lymphocytes % 22.0 L (24.0-44.0) % Monocytes % 8.2 (0.0-12.0) % Eosinophils % 1.4 (0.00-5.0) % Basophils % 0.6 (0.0-0.4) % Absolute Granulocytes 7.31 H (1.4-6.9) Basophils # 0.06 (0-0.4) Sodium 142 (137-145) mmol/L Potassium 3.9 (3.5-5.1) mmol/L Chloride 107 (98-107) mmol/L Carbon Dioxide 26 (22-30) mmol/L Anion Gap 12.9 (5-15) MEQ/L BUN 13 (7-17) mg/dL Creatinine 0.52 (0.52-1.04) mg/dL Estimated GFR > 60.0 ML/MIN Calcium 8.9 (8.4-10.2) mg/dL Total Bilirubin 0.60 (0.2-1.3) mg/dL AST 17 (14-36) U/L ALT 16 (0-35) U/L Alkaline Phosphatase 61 (38-126) U/L Troponin I < 0.012 (0.000-0.034) ng/mL Serum Total Protein 7.5 (6.3-8.2) g/dL Albumin 4.0 (3.5-5.0) g/dL TSH 3rd Generation 1.130 (0.47-4.68) mIU/L Urine Color (YELLOW) Urine Appearance (CLEAR) Urine pH (5-6) Ur Specific [place] (1.005-1.025) Urine Protein (Negative) Urine Ketones (NEGATIVE) Urine Blood (0-5) Sam/ul Urine Nitrite (NEGATIVE) Urine Bilirubin (NEGATIVE) Urine Urobilinogen (0-1) mg/dL Ur Leukocyte Esterase (NEGATIVE) Urine WBC (Auto) (0-5) /HPF Urine RBC (Auto) (0-2) /HPF U Epithel Cells (Auto) (FEW) /HPF Urine Bacteria (Auto) (NEGATIVE) /HPF Urine Culture Reflexed (NO) Urine Glucose (NEGATIVE) mg/dL 08/06/19 Range/Units 17:38 WBC (4.0-10.5) K/mm3 RBC (4.1-5.4) M/mm3 Hgb (12.0-16.0) gm/dl Hct (35-47) % MCV (78-100) fl MCH (26-32) pg MCHC (32-36) g/dl RDW (11.5-14.0) % Plt Count (150-450) K/mm3 MPV (7.5-11.0) fl Gran % (36.0-66.0) % Eos # (Auto) (0-0.5) Absolute Lymphs (auto) (1.0-4.6) Absolute Monos (auto) (0.0-1.3) Lymphocytes % (24.0-44.0) % Monocytes % (0.0-12.0) % Eosinophils % (0.00-5.0) % Basophils % (0.0-0.4) % Absolute Granulocytes (1.4-6.9) Basophils # (0-0.4) Sodium (137-145) mmol/L Potassium (3.5-5.1) mmol/L Chloride (98-107) mmol/L Carbon Dioxide (22-30) mmol/L Anion Gap (5-15) MEQ/L BUN (7-17) mg/dL Creatinine (0.52-1.04) mg/dL Estimated GFR ML/MIN Calcium (8.4-10.2) mg/dL Total Bilirubin (0.2-1.3) mg/dL AST (14-36) U/L ALT (0-35) U/L Alkaline Phosphatase (38-126) U/L Troponin I (0.000-0.034) ng/mL Serum Total Protein (6.3-8.2) g/dL Albumin (3.5-5.0) g/dL TSH 3rd Generation (0.47-4.68) mIU/L Urine Color YELLOW (YELLOW) Urine Appearance CLEAR (CLEAR) Urine pH 7.0 (5-6) Ur Specific [place] 1.014 (1.005-1.025) Urine Protein NEGATIVE (Negative) Urine Ketones NEGATIVE (NEGATIVE) Urine Blood NEGATIVE (0-5) Sam/ul Urine Nitrite NEGATIVE (NEGATIVE) Urine Bilirubin NEGATIVE (NEGATIVE) Urine Urobilinogen NEGATIVE (0-1) mg/dL Ur Leukocyte Esterase NEGATIVE (NEGATIVE) Urine WBC (Auto) NONE (0-5) /HPF Urine RBC (Auto) 0-2 (0-2) /HPF U Epithel Cells (Auto) NONE (FEW) /HPF Urine Bacteria (Auto) NONE (NEGATIVE) /HPF Urine Culture Reflexed NO (NO) Urine Glucose NEGATIVE (NEGATIVE) mg/dL Micro Results-Entire Visit: Accuchecks Accucheck Value: 109 Accucheck Value: 90 Accucheck Value: 82 - Radiology Exams Ordered Rad Exams-Entire Visit: Radiology Procedures Category Date Time Status CAROTID BILATERAL [US] Routine Exams 08/07/19 16:30 Taken ECHO W/2D AND DOPPLER [US] Routine Exams 08/07/19 07:00 Taken MRI BRAIN W/O CONTRAST [MRI] Routine Exams 08/06/19 16:30 Completed MRI C-SPINE W/O CONTRAST [MRI] Routine Exams 08/07/19 08:30 Ordered - Procedures and Test Procedures and Tests throughout Hospitalization: Therapy Orders & Screens 08/06/19 16:30 EEG 41-60 Minutes (Normal) ONCE Comment: Reason For Exam: tia Diagnosis: tia EKG ROUTINE Comment: Diagnosis: tia Discharge Exam General Appearance: no apparent distress, alert Neurologic Exam: oriented x 3, cooperative, map 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 as tested (some weakness CN XI on the R; pt notes R shoulder issues and large scar is present lateral to clavicle), other (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) Eye Exam: EOMI, eyes nml inspection Neck Exam: normal inspection Respiratory Exam: normal breath sounds, lungs clear, No crackles/rales, No rhonchi, No wheezing Cardiovascular Exam: regular rate/rhythm, normal heart sounds, No murmur Gastrointestinal/Abdomen Exam: soft, normal bowel sounds, No tenderness, No distention, No mass, No guarding, No rebound Back Exam: normal inspection, No rash Extremity Exam: normal inspection, No pedal edema, No swelling Skin Exam: normal color, warm, dry, No rash Final Diagnosis/Problem List - Final Discharge Diagnosis/Problem (1) Migraine Current Visit: Yes Status: Acute Assessment & Plan: possible; testing is still pending. Will consult teleneurology for question of migraine vs TIA. EEG to be done today. Echo and carotid doppler pending. Pt is stable. On 325mg ASA daily. Stop adipex altogether. Code(s): G43.909 - MIGRAINE, UNSP, NOT INTRACTABLE, WITHOUT STATUS MIGRAINOSUS - Discharge Disposition: Home, Self-Care Condition: Stable Prescriptions: No Action Acetaminophen [Tylenol Extra Strength] 1,000 mg PO Q4-6HPRN PRN PRN Reason: Pain Phentermine HCl [Adipex-P] 18.75 mg PO UD Ibuprofen 800 mg PO Q4-6HPRN PRN PRN Reason: Pain Follow up with: SHIVAM FIELD MD [Primary Care Provider] - 1 Week
--- NOTE | 2019-08-07 09:49 | XRAY ---
Indication: TIA symptoms. Two-dimensional sonogram and color Doppler imaging of the carotid arteries of the neck performed. Comparison: None Examination of the right carotid circulation demonstrates minimal intimal thickening at the level of the bulb. Remaining common carotid, internal carotid, and external carotid arteries are widely patent. PSV of the CCA is 95 cm/s. PSV of the ICA is 108 cm/s. ICA/CCA ratio is 1.1. Normal antegrade vertebral artery flow. Examination of the left carotid circulation demonstrates widely patent common carotid, carotid bulb, internal carotid, and external carotid arteries. PSV of the CCA is 95 cm/s. PSV of the ICA is 59 cm/s. ICA/CCA ratio is 0.6. Normal antegrade vertebral artery flow. Impression: Minimal right carotid bulb intimal thickening. Remaining left and right carotid artery sonogram negative for critical stenosis/obstruction. Velocity measurements and ratios are also negative for hemodynamically significant flow-limiting stenosis.
--- NOTE | 2019-08-07 12:36 | XRAY ---
Indication: Chronic lower cervical pain. No known injury. Sagittal and axial MRI cervical spine performed using T1 and T2 weighted sequences. Comparison: None Sagittal MRI images demonstrating normal alignment. Mild C2-C7 degenerative disc dehydration signal without disc space loss. No acute fracture, suspicious bony lesions, or abnormal bone marrow signal. Spinal cord is normal in course and caliber without signal abnormality. Normal appearing craniocervical junction. Axial images at the C2-C5 levels are negative for disc herniation, spinal canal, or foraminal stenosis. At the C5-C6 level, there is small left lateral subligamentous disc herniation with disc extending posteriorly and producing left foraminal stenosis. Additional small right lateral subligamentous disc herniation with disc material extending posteriorly and superiorly to the mid body of C5 and producing right foraminal stenosis. No spinal canal stenosis. At the C6-C7 level, there is mild right lateral disc bulge producing right foraminal narrowing. No central disc herniation, spinal canal, or foraminal stenosis. The C7-T1 level is unremarkable. Impression: 1. Bilateral C5-C6 lateral subligamentous disc herniations as detailed with subsequent bilateral foraminal stenosis. 2. Mild right C6-C7 degenerative disc bulge with right foraminal narrowing.
[2019-08-07 16:50] VITALS: BP 109/58; PULSE 87; O2SAT 98
[2019-08-08] MEDS ORDERED: FEOSOL 325 MG PO SCH (10:00)
--- NOTE | 2019-08-10 14:28 | ECHO ---
Transthoracic echocardiographic examination and color Doppler was done on 08/07/2019. INDICATION: Transient ischemic attack. The left ventricle was only partially visualized. The left ventricular ejection fraction is probably in the range of about 50%. The mitral valve was not well visualized but there was no significant regurgitation seen. Left atrium is not enlarged. The aortic valve is also partially visualized. There is no significant gradient across the left ventricular outflow tract. The right side chambers are mildly dilated. Mild tricuspid regurgitation. The right ventricular systolic pressure of 38 mm of [place]. IMPRESSION: THIS IS A LIMITED STUDY WHICH PRECLUDES ADEQUATE ASSESSMENT OF INTRACARDIAC ANATOMY AND PHYSIOLOGY.
[2019-08-10 15:28] LABS: ANA Pattern Interp Detail See Result Note:
== END 2019-08-07 19:40 | disposition home or self-care (01) ==
LOC: MED SURG 15:59
PROVIDERS: ADMIT Family Medicine; ATTEND Family Medicine
DX: G43.909 Migraine, unspecified, not intractable, without status migrainosus (principal); G44.52 New daily persistent headache (NDPH); G45.9 Transient cerebral ischemic attack, unspecified; Z79.899 Other long term (current) drug therapy
CPT/HCPCS: 36415; 70551; 72141; 80053; 81001; 82962; 84443; 84484; 85025; 85652; 86038; 86039; 93005; 93268; 93306; 93880; 95812; G0378; Q3014; A9270-GY

== ENCOUNTER 2024-05-01 12:01 | Emergency (ER) | payer BC ==
[2024-05-01 12:20] VITALS: TEMP 98.1; O2SAT 98
--- NOTE | 2024-05-01 12:31 | ERPHSYRPT ---
- History of Present Illness Time Seen by Provider: 05/01/24 12:18 Source: patient Exam Limitations: no limitations Patient Subjective Stated Complaint: pt reports she was carrying a lot of items that were heavy causing an injury to her left upper arm. Triage Nursing Assessment: pt is aox3, pupils perrl, afebrile, resps easy and non labored, cap refill < 3 seconds, radial pulses strong and equal, pt sensation intact, ROM deferred d/t pain. cap refill < 3 seconds, no obvious injury or deformity noted. Physician History: Pt states 2 days ago she lifted 15 - 20 # of items with her left hand with immediate pain in her left shoulder, left arm and left forearm much worse with movement; denies numbness. Pt denies chest pain, shortness of air, nausea, vomiting. Allergies/Adverse Reactions: morphine Allergy (Severe, Verified 05/01/24 12:20) Tightness of Throat Home Medications: Atorvastatin Calcium [Lipitor] 20 mg PO DAILY 05/01/24 [History] Ezetimibe 10 mg [Zetia 10 MG] 10 mg PO DAILY 05/01/24 [History] Famotidine 40 mg PO BID 05/01/24 [History] Pregabalin 50 mg [Lyrica 50MG] 100 mg PO TID 05/01/24 [History] Tizanidine HCl 4 mg [Zanaflex 4 MG] 4 mg PO HS 05/01/24 [History] Hx Tetanus, Diphtheria Vaccination/Date Given: Yes Hx Influenza Vaccination/Date Given: No Hx Pneumococcal Vaccination/Date Given: No Immunizations Up to Date: Yes Travel Risk - International Travel Have you traveled outside of the country in past 3 weeks: No - Emerging Infectious Disease Are you exhibiting symptoms associated with any current EIDs: No - Review of Systems Respiratory: No Dyspnea Cardiac: No Chest Pain Abdominal/Gastrointestinal: No Nausea, No Vomiting Musculoskeletal: Other (Left shoulder, arm & forearm pain for the past 2 days) - Past Medical History Pertinent Past Medical History: Yes Neurological History: No Pertinent History, Migraines ENT History: No Pertinent History Cardiac History: No Pertinent History Respiratory History: No Pertinent History Endocrine Medical History: Hypoglycemia Musculoskeletal History: Arthritis, Osteoporosis GI Medical History: Diverticulitis History: No Pertinent History Psycho-Social History: No Pertinent History, Anxiety, Depression Female Reproductive Disorders: Ovarian Cancer, Uterine Cancer Other Medical History: patient states she had uterine and ovarian cancer but they got it all with complete hysterectomy, right shoulder fx and back problems - Past Surgical History Past Surgical History: Yes Neuro Surgical History: No Pertinent History Cardiac: No Pertinent History Respiratory: No Pertinent History Gastrointestinal: Appendectomy, Colon Resection, Exploratory Laparoscopy Genitourinary: No Pertinent History Musculoskeletal: Orthopedic Surgery Female Surgical History: Hysterectomy, Tubal Ligation, Lumpectomy Other Surgical History: polyps removed from colon, r shoulder surgeries - Female History Hx Now: No - Social History Smoking Status: Never smoker Exposure to second hand smoke: Yes Drug Use: none - Social Determinants of Health Will the patient participate in the screening: Declined to provide - Nursing Vital Signs Nursing Vital Signs: Initial Vital Signs Temperature 98.1 F 05/01/24 12:10 Pulse Rate 88 05/01/24 12:10 Respiratory Rate 20 05/01/24 12:10 Blood Pressure 131/66 05/01/24 12:10 O2 Sat by Pulse Oximetry 98 05/01/24 12:10 Pain Scale Pain Intensity 10 - Physical Exam General Appearance: alert Eyes, Ears, Nose, Throat Exam: TMs normal, pharynx normal Neck Exam: normal inspection Cardiovascular/Respiratory Exam: normal breath sounds, heart sounds normal Abdominal Exam: soft (B.S. normal) Shoulder Exam: limited ROM (due to pain), soft tissue tenderness (mild left shoulder tenderness) Elbow/Forearm Exam: soft tissue tenderness (mild left forearm tenderness) Wrist Exam: normal ROM Hand Exam: normal ROM Neuro/Tendon Exam: normal sensation Mental Status Exam: alert, cooperative Skin Exam: warm, dry SpO2 Interpretation: normal SpO2: 98 O2 Delivery: Room Air - Course Nursing assessment & vital signs reviewed: Yes - Radiology Exams Left Forearm X-ray Interpretation: Interpreted by me, No Fracture Left Humerus X-ray Interpretation: Interpreted by me, No Fracture Left Shoulder X-ray Interpretation: Interpreted by me, No Fracture Ordered Tests: Active Orders 24 hr Category Date Time Status Sling Application STAT Care 05/01/24 12:26 Active FOREARM Stat Exams 05/01/24 12:27 Taken HUMERUS Stat Exams 05/01/24 12:27 Taken SHOULDER Stat Exams 05/01/24 12:27 Taken Medication Summary Discontinued Medications Generic Name Dose Route Start Last Admin Trade Name Freq PRN Reason Stop Dose Admin Hydrocodone Bitart/Acetaminophen 2 tab 05/01/24 12:26 05/01/24 12:34 Hydrocodone/Apap 5/325 1 Tab Tablet PO 05/01/24 12:27 2 tab STAT ONE Administration Hydrocodone Bitart/Acetaminophen Confirm 05/01/24 12:32 Hydrocodone/Apap 5/325 1 Tab Tablet Administered 05/01/24 12:33 Dose 2 tab .ROUTE .STK-MED ONE - Progress Progress: unchanged Counseled pt/family regarding: diagnosis, need for follow-up, rad results Medical Desision Making - Diagnostic Testing Diagnostic test were ordered, analyzed, and reviewed by me: Yes Radiological Interpretation: Interpreted by me - Departure Departure Disposition: Home Clinical Impression: Left shoulder sprain, Pain of left upper extremity Condition: Stable Critical Care Time: No Referrals: CARMENCITA KIRK [Primary Care Provider] - Follow up/PCP as directed Instructions: Shoulder Sprain (DC) Additional Instructions: Follow up with private doctor today. Wear left arm sling for comfort. Do not use left arm/hand until you are pain free. Prescriptions: Ketorolac Trometh 10 mg Tab [TORAdol 10 MG TABLET] 10 mg PO Q8HPRN PRN #14 tablet PRN Reason: Pain
[2024-05-01] MEDS ORDERED: NORCO 5/325 MG ONE (12:32)
[2024-05-01] MEDS: NORCO 5/325 MG PO ONE (12:34)
--- NOTE | 2024-05-01 13:00 | XRAY ---
Indication: Pain. Comparison: None 2 view left forearm demonstrates osteopenia. No other bony, articular, or soft tissue abnormalities.
--- NOTE | 2024-05-01 13:00 | XRAY ---
Indication: Pain. Comparison: None 3 limited views left shoulder demonstrates osteopenia, mild AC degenerative arthropathy, and 3 mm lateral humeral head well-circumscribed heterotopic ossification. No acute bony, articular, or soft tissue abnormalities.
--- NOTE | 2024-05-01 13:02 | XRAY ---
Indication: Pain. Comparison: None 2 view left humerus interpreted with same day shoulder exam demonstrates osteopenia and 3 mm lateral humeral head well-circumscribed heterotopic ossification. No acute bony, articular, or soft tissue abnormalities.
[2024-05-01 13:10] VITALS: BP 128/78; PULSE 89; RESP 16
== END 2024-05-01 13:20 | disposition home or self-care (01) ==
LOC: ED 12:01
DX: S43.402A Unspecified sprain of left shoulder joint, initial encounter (principal); X50.0XXA Overexertion from strenuous movement or load, initial encounter; M79.602 Pain in left arm; Z79.899 Other long term (current) drug therapy
CPT/HCPCS: 73030; 73060; 73090; 99283; 99284; A9270-GY